=== PATIENT | female | born 1995 | race African-American/Black ===

== ENCOUNTER 2019-11-05 12:38 | Emergency (ER) | payer OTHER ==
[~2019-11-05] VITALS: Ht 162.6 cm; Wt 112.0 kg
[~2019-11-05 12:38] MED LIST: AMOXICILLIN 50500 MG PO; IBUPROFEN 200200 M1 PO; MOBIC7.5 MG PO; NAPROSYN500 MG PO; ONDANSETRON HCL4 M2 PO; PREDNISONE 20 M20 MG PO; PROMS25 WY RECTAL; TYLENOL COLD H1 EACH PO
[2019-11-05] MEDS ORDERED: ACETAMINOPHEN500 M1 PO (13:08)
[2019-11-05 14:43] VITALS: BP 133/84
== END 2019-11-05 14:35 | disposition home or self-care (01) ==
LOC: ER 12:38
DX: G43.909 Migraine, unspecified, not intractable, without status migrainosus (principal); Z79.899 Other long term (current) drug therapy

== ENCOUNTER 2020-01-07 14:08 | Emergency (ER) | payer OTHER ==
[~2020-01-07] VITALS: Ht 162.6 cm; Wt 108.9 kg
[~2020-01-07 14:08] MED LIST changes: +ACETAMINOPHEN500 M1 PO
[2020-01-07 14:09] VITALS: BP 146/88
[2020-01-07] MEDS ORDERED: NORFLEX100 MG PO (14:35)
[2020-01-07] MEDS ORDERED: NAPROSYN500 MG PO (14:35)
[2020-01-07] MEDS ORDERED: PROMS25 WY RECTAL (14:35)
== END 2020-01-07 15:24 | disposition home or self-care (01) ==
LOC: ER 14:08
DX: G43.809 Other migraine, not intractable, without status migrainosus (principal); Z79.899 Other long term (current) drug therapy

== ENCOUNTER 2020-08-02 09:34 | Emergency (ER) | payer OTHER ==
[~2020-08-02] VITALS: Ht 162.6 cm; Wt 117.9 kg
[~2020-08-02 09:34] MED LIST changes: +NORFLEX100 MG PO
[2020-08-02] MEDS ORDERED: PENICILLIN V P500 MG PO (11:13)
[2020-08-02] MEDS ORDERED: PROMETHAZINE-D473 M1 PO (11:13)
[2020-08-02 11:31] VITALS: BP 127/80
== END 2020-08-02 11:32 | disposition home or self-care (01) ==
LOC: ER 09:34
DX: J02.0 Streptococcal pharyngitis (principal); G43.909 Migraine, unspecified, not intractable, without status migrainosus

== ENCOUNTER 2021-05-04 12:15 | Emergency (ER) | payer OTHER ==
[~2021-05-04] VITALS: Ht 162.6 cm; Wt 108.9 kg
[~2021-05-04 12:15] MED LIST changes: +PENICILLIN V P500 MG PO; +PROMETHAZINE-D473 M1 PO
[2021-05-04] MEDS ORDERED: MAGIC MOUTHWASH SWISH&SPIT (13:37)
[2021-05-04 14:22] VITALS: BP 138/90
== END 2021-05-04 14:22 | disposition home or self-care (01) ==
LOC: ER 12:15
PROVIDERS: Physician Assistant
DX: J02.9 Acute pharyngitis, unspecified (principal); Z20.822 Contact with and (suspected) exposure to COVID-19; G43.909 Migraine, unspecified, not intractable, without status migrainosus; F12.90 Cannabis use, unspecified, uncomplicated